=== PATIENT | male | born 1970 | race Caucasian/White ===

== ENCOUNTER → 2020-12-14 | Outpatient (CLI) | payer OTHER ==
[~2020-12-14] MED LIST: AMLODIPINE BESYL5 MG PO; BACLOFEN PO; CYCLOBENZAPRINE10 MG PO; GABAPENTIN400 MG PO; GEMFIBROZIL600 MG PO; HUMERA SQ; HYDROCODON-ACE1 EAC4 PO; HYDROCODONE-AC1 EACH PO; LANTUS100 UNIT/1 SC; MAGNESIUM400 M2 PO; MECLIZINE HCL25 MG PO; MODAFINIL200 MG PO; NOVOLOG100 UNIT/1 SC; PROTONIX 40 MG40 M1 PO; ST. JOSEPH ASPI81 M1 PO; TOPROL XL 25 MG25 MG PO; VITAMIN B-1100 MG/ML IM; VITAMIN D325 MCG PO; ZESTRIL5 MG PO
== END ==
LOC: KOH-I 09:35
DX: M25.371 Other instability, right ankle (principal); M25.372 Other instability, left ankle; M19.072 Primary osteoarthritis, left ankle and foot; M19.071 Primary osteoarthritis, right ankle and foot
CPT/HCPCS: 73610

== ENCOUNTER → 2021-02-16 | Outpatient (CLI) | payer MEDICARE, OTHER | LOC: MRI 08:58 | DX: I10 Essential (primary) hypertension (principal); E11.42 Type 2 diabetes mellitus with diabetic polyneuropathy; I95.1 Orthostatic hypotension; R42 Dizziness and giddiness | CPT/HCPCS: 70551 ==

== ENCOUNTER → 2021-04-19 | Outpatient (CLI) | payer OTHER | LOC: KOH-I 10:53 | DX: M25.571 Pain in right ankle and joints of right foot (principal) | CPT/HCPCS: 73610; 73630 ==

== ENCOUNTER → 2021-04-23 | Outpatient (CLI) | payer OTHER | LOC: OPSV2 11:00 | DX: Z01.812 Encounter for preprocedural laboratory examination (principal) | CPT/HCPCS: 36415; 83036 ==

== ENCOUNTER → 2021-04-25 | Day surgery (SDC) | payer MEDICARE, OTHER ==
[~2021-04-25] VITALS: Ht 174 cm; Wt 96.6 kg
== END | disposition home or self-care (01) ==
LOC: OR 06:35
DX: M25.372 Other instability, left ankle (principal); M65.872 Other synovitis and tenosynovitis, left ankle and foot; M93.272 Osteochondritis dissecans, left ankle and joints of left foot; M79.89 Other specified soft tissue disorders; E11.9 Type 2 diabetes mellitus without complications; I10 Essential (primary) hypertension; I25.2 Old myocardial infarction; K21.9 Gastro-esophageal reflux disease without esophagitis; F32.9 Major depressive disorder, single episode, unspecified; F41.9 Anxiety disorder, unspecified; G47.30 Sleep apnea, unspecified; E78.5 Hyperlipidemia, unspecified; Z95.5 Presence of coronary angioplasty implant and graft; Z79.4 Long term (current) use of insulin; Z79.82 Long term (current) use of aspirin; Z79.891 Long term (current) use of opiate analgesic; Z79.899 Other long term (current) drug therapy
CPT/HCPCS: 82962; 88341; 88342; C1713; J0171; J0690; J1100; J1885; J2250; J2405; J2704; J2795; J3010; J3370; J7030; J7120; Q4133

== ENCOUNTER 2021-05-04 17:38 | Emergency (ER) | payer MEDICARE, OTHER ==
[~2021-05-04 17:38] MED LIST changes: -HYDROCODON-ACE1 EAC4 PO
[2021-05-04] MEDS ORDERED: HYDROCODON-ACE1 EAC4 PO (20:51)
== END 2021-05-04 21:15 | disposition home or self-care (01) ==
LOC: ER1 17:38
DX: M25.572 Pain in left ankle and joints of left foot (principal); M79.672 Pain in left foot; E11.9 Type 2 diabetes mellitus without complications; I11.9 Hypertensive heart disease without heart failure; Z90.89 Acquired absence of other organs
CPT/HCPCS: 29515; 99283

== ENCOUNTER → 2021-09-05 | Outpatient (CLI) | payer OTHER ==
[~2021-09-05] MED LIST changes: +HYDROCODON-ACE1 EAC4 PO
== END ==
LOC: KOH-I 15:08
DX: S83.207A Unspecified tear of unspecified meniscus, current injury, left knee, initial encounter (principal)
CPT/HCPCS: 73721

== ENCOUNTER → 2021-11-01 | Outpatient (CLI) | payer OTHER | LOC: EXRD 13:56 | DX: J18.9 Pneumonia, unspecified organism (principal); U09.9 Post COVID-19 condition, unspecified | CPT/HCPCS: 71046; 94060; 94729 ==

== ENCOUNTER → 2021-11-12 | Outpatient (CLI) | payer OTHER | LOC: KOH-I 11-08 14:30 | DX: R06.02 Shortness of breath (principal); Z86.16 Personal history of COVID-19 | CPT/HCPCS: 71250 ==

== ENCOUNTER → 2021-12-24 | Outpatient (CLI) | payer OTHER | LOC: KOH-I 11:35 | DX: M25.572 Pain in left ankle and joints of left foot (principal); M19.072 Primary osteoarthritis, left ankle and foot | CPT/HCPCS: 73610; 73630 ==

== ENCOUNTER 2022-02-19 17:39 | Emergency (ER) | payer OTHER ==
[2022-02-19 20:00] LABS: HEMOGLOBIN 16.4 gm/dl (14.0-17.5); RED BLOOD COUNT 5.4 M/UL (4.20-5.50); WHITE BLOOD COUNT 5.8 K/UL (4.5-11.0)
[2022-02-19 20:26] LABS: BUN/CREATININE RATIO 10 (0-10)
== END 2022-02-19 23:09 | disposition home or self-care (01) ==
LOC: ER1 17:39
PROVIDERS: Physician Assistant
DX: R07.9 Chest pain, unspecified (principal); F41.9 Anxiety disorder, unspecified; I11.9 Hypertensive heart disease without heart failure; I25.2 Old myocardial infarction; E78.5 Hyperlipidemia, unspecified; E11.9 Type 2 diabetes mellitus without complications; Z79.82 Long term (current) use of aspirin; Z95.5 Presence of coronary angioplasty implant and graft; Z79.4 Long term (current) use of insulin; Z79.84 Long term (current) use of oral hypoglycemic drugs
CPT/HCPCS: 71045; 80053; 82550; 82553; 83880; 84484; 85025; 85610; 85730; 93005; 99285

== ENCOUNTER → 2022-03-26 | Outpatient (CLI) | payer OTHER | LOC: KOH-I 16:11 | DX: M25.572 Pain in left ankle and joints of left foot (principal); M25.571 Pain in right ankle and joints of right foot; S82.52XA Displaced fracture of medial malleolus of left tibia, initial encounter for closed fracture | CPT/HCPCS: 73610 ==

== ENCOUNTER → 2022-04-23 | Outpatient (CLI) | payer OTHER | LOC: NM 10:00 | DX: R07.9 Chest pain, unspecified (principal); R06.02 Shortness of breath | CPT/HCPCS: 78452; 93017; A9502; J2785 ==